=== PATIENT | female | born 1970 | race Caucasian/White ===

== ENCOUNTER → 2017-09-16 13:24 | Outpatient (REF) | payer OTHER, SELFPAY ==
[2017-09-16 19:01] LABS: Basophils % 0.5 % (0.1-2.0); Eosinophils # 0.1 K/mm3 (0.0-0.4); Eosinophils % 2.5 % (0.1-12.0); Hemoglobin 11.7 g/dL (12.2-16.2); Mean Corpuscular HGB Conc 31.7 g/dL (31.8-35.4); Mean Corpuscular Hemoglobin 28.7 pg (27.0-31.2); Mean Corpuscular Volume 90.6 fl (81-99); Mean Platelet Volume 9.3 fl (7.4-10.4); Monocytes # 0.3 K/mm3 (0.1-1.0); Monocytes % 5.7 % (1.7-9.3); Neutrophils # 2.8 K/mm3 (1.8-7.8); Neutrophils % 53.4 % (37.0-80.0); Platelet Count 187 K/mm3 (142-424); Red Blood Count 4.09 M/mm3 (4.20-5.40); Red Cell Distribution Width 14.7 % (11.5-17.5); White Blood Count 5.3 K/mm3 (4.8-10.8)
[2017-09-16 19:32] LABS: Alanine Aminotransferase 14 U/L (12-78); Albumin/Globulin Ratio 1.3 (1.1-1.8); Alkaline Phosphatase 50 U/L (46-116); Anion Gap 16.3 mEq/L (5-15); Aspartate Amino Transferase 13 U/L (15-37); Bilirubin,Total 0.3 mg/dL (0.2-1.0); Blood Urea Nitrogen 10 mg/dL (7-18); Calcium 8.9 mg/dL (8.5-10.1); Carbon Dioxide 23 mmol/L (21.0-32.0); Chloride 104 mmol/L (98-107); Chol/HDL Ratio 3.8 (1-3.5); Cholesterol 199 mg/dL (140-200); Creatinine,Serum 0.83 mg/dL (0.55-1.02); Estimated Glomerular Filt Rate 74 ml/min (>60); GFR (African American) 90 ML/MIN (>60); Globulin 3.1 gm/dl (1.3-3.2); Glucose 91 mg/dL (74-106); HDL Cholesterol 52 mg/dL (29-89); LDL Cholesterol 139 mg/dL (0-130); Potassium 4.3 mmoL/L (3.5-5.1); Sodium 139 mmol/L (136-145); T4 (Thyroxine) 6.1 ug/dl (4.7-13.3); Thyroid Stimulating Hormone 0.96 uIU/ml (0.358-3.740); Total Protein,Serum 7.1 gm/dL (6.4-8.2); Triglycerides 42 mg/dL (30-200); VLDL Cholesterol 8 mg/dL (0-40)
[2017-09-18 09:20] LABS: Hep A Ab, IgM Negative (Negative); Hepatitis B Core Antibody IgM Negative (Negative); Hepatitis B Surface Antigen Negative (Negative)
[2017-09-19 10:41] LABS: Hepatitis C Antibody <0.1 s/co ratio (0.0-0.9); Vitamin B12 289 pg/mL (232-1245); Vitamin D 25 Hydroxy 31.1 ng/mL (30.0-100.0)
== END ==
LOC: LAB 13:24
PROVIDERS: Visit Provider Physician Assistant
DX: R53.83 Other fatigue (principal); Z79.899 Other long term (current) drug therapy; E55.9 Vitamin D deficiency, unspecified; R10.11 Right upper quadrant pain; F32.9 Major depressive disorder, single episode, unspecified
CPT/HCPCS: 80053; 80061; 80074; 82607; 82652; 84436; 84443; 85025

== ENCOUNTER → 2019-04-12 17:21 | Outpatient (CLI) | payer OTHER, SELFPAY ==
[2019-04-12 17:49] LABS: Basophils % 0.5 % (0.1-2.0); Eosinophils # 0.2 K/mm3 (0.0-0.4); Eosinophils % 3.7 % (0.1-12.0); Hematocrit 39.2 % (37.0-47.0); Hemoglobin 12.4 g/dL (12.2-16.2); Lymphocytes # 2.7 K/mm3 (0.7-4.5); Lymphocytes % 46.1 % (10-50); Mean Corpuscular HGB Conc 31.6 g/dL (31.8-35.4); Mean Corpuscular Hemoglobin 30.2 pg (27.0-31.2); Mean Corpuscular Volume 95.7 fl (81-99); Mean Platelet Volume 8.8 fl (7.4-10.4); Monocytes # 0.3 K/mm3 (0.1-1.0); Monocytes % 5.2 % (1.7-9.3); Neutrophils # 2.6 K/mm3 (1.8-7.8); Neutrophils % 44.5 % (37.0-80.0); Platelet Count 187 K/mm3 (142-424); Red Cell Distribution Width 13.4 % (11.5-17.5); White Blood Count 5.9 K/mm3 (4.8-10.8)
[2019-04-12 18:40] LABS: Alanine Aminotransferase 16 U/L (12-78); Albumin Level 3.7 gm/dL (3.4-5.0); Albumin/Globulin Ratio 1.1 (1.1-1.8); Alkaline Phosphatase 63 U/L (46-116); Aspartate Amino Transferase 18 U/L (15-37); Bilirubin,Total 0.3 mg/dL (0.2-1.0); Blood Urea Nitrogen 9 mg/dL (7-18); Calcium 8.6 mg/dL (8.5-10.1); Carbon Dioxide 27 mmol/L (21.0-32.0); Chloride 102 mmol/L (98-107); Chol/HDL Ratio 3.7 (1-3.5); Cholesterol 236 mg/dL (140-200); Creatinine,Serum 0.82 mg/dL (0.55-1.02); Estimated Glomerular Filt Rate 75 ml/min (>60); GFR (African American) 90 ML/MIN (>60); Globulin 3.4 gm/dl (1.3-3.2); Glucose 87 mg/dL (74-106); HDL Cholesterol 64 mg/dL (29-89); LDL Cholesterol 155 mg/dL (0-130); Sodium 136 mmol/L (136-145); T4 (Thyroxine) 5.2 ug/dl (4.7-13.3); Thyroid Stimulating Hormone 1.28 uIU/ml (0.358-3.740); Total Protein,Serum 7.1 gm/dL (6.4-8.2); Triglycerides 84 mg/dL (30-200); VLDL Cholesterol 17 mg/dL (0-40)
[2019-04-14 12:20] LABS: FSH 107.4 mIU/mL (.); LH 44.4 mIU/mL (.); Vitamin D 25 Hydroxy 22.9 ng/mL (30.0-100.0)
[2019-04-17 05:13] LABS: Estrogen 29 pg/mL (.)
== END ==
PROVIDERS: Visit Provider Physician Assistant
DX: R53.83 Other fatigue (principal); E55.9 Vitamin D deficiency, unspecified
CPT/HCPCS: 80053; 80061; 82652; 82672; 83001; 83002; 84436; 84443; 85025

== ENCOUNTER → 2019-10-26 17:25 | Outpatient (CLI) | payer OTHER, SELFPAY ==
[2019-10-26 18:15] LABS: Basophils # 0.1 K/mm3 (0-0.2); Basophils % 1.1 % (0.1-2.0); Eosinophils # 0.3 K/mm3 (0.0-0.4); Lymphocytes % 40.7 % (10-50); Mean Corpuscular HGB Conc 33.2 g/dL (31.8-35.4); Mean Corpuscular Hemoglobin 31.1 pg (27.0-31.2); Mean Corpuscular Volume 93.6 fl (81-99); Mean Platelet Volume 9.4 fl (7.4-10.4); Monocytes # 0.4 K/mm3 (0.1-1.0); Neutrophils # 3.6 K/mm3 (1.8-7.8); Neutrophils % 49.1 % (37.0-80.0); Platelet Count 164 K/mm3 (142-424); Red Blood Count 4.17 M/mm3 (4.20-5.40); Red Cell Distribution Width 13.8 % (11.5-17.5); White Blood Count 7.3 K/mm3 (4.8-10.8)
[2019-10-26 18:48] LABS: Chloride 105 mmol/L (98-107); Potassium 4.3 mmoL/L (3.5-5.1); Sodium 138 mmol/L (136-145)
[2019-10-26 18:50] LABS: Alanine Aminotransferase 10 U/L (12-78); Anion Gap 10.3 mEq/L (5-15); Aspartate Amino Transferase 22 U/L (14-36); Blood Urea Nitrogen 9 mg/dl (7-17); Carbon Dioxide 27 mmol/L (22.0-30.0); Estimated Glomerular Filt Rate 77 ml/min (>60); GFR (African American) 93 ML/MIN (>60)
[2019-10-26 18:51] LABS: Albumin Level 4.3 g/dl (3.5-5.0); Albumin/Globulin Ratio 1.5 (1.1-1.8); Alkaline Phosphatase 68 U/L (38-126); Bilirubin,Total 0.6 mg/dl (0.2-1.3); Calcium 9.4 mg/dl (8.4-10.2); Chol/HDL Ratio 2.7 (1-3.5); Cholesterol 150 mg/dl (140-200); Globulin 2.9 g/dL (1.3-3.2); Glucose 93 mg/dl (74-100); HDL Cholesterol 56 mg/dl (40-60); Total Protein,Serum 7.2 g/dl (6.3-8.2); Triglycerides 77 mg/dl (30-150); VLDL Cholesterol 15 mg/dL (0-40)
[2019-10-26 19:02] LABS: Direct LDL Cholesterol 103.35 mg/dL (100-129)
[2019-10-26 19:08] LABS: T4 (Thyroxine) 5.8 ug/dl (5.53-11.0)
[2019-10-26 19:22] LABS: Thyroid Stimulating Hormone 1.24 uIU/mL (0.465-4.68)
[2019-10-26 21:58] LABS: Hemoglobin A1C 5.4 % (4.0-6.0)
== END ==
PROVIDERS: Visit Provider Physician Assistant
DX: R53.83 Other fatigue (principal); R73.09 Other abnormal glucose
CPT/HCPCS: 80053; 80061; 83036; 84436; 84443; 85025

== ENCOUNTER → 2020-12-20 17:16 | Outpatient (CLI) | payer OTHER, SELFPAY ==
[2020-12-20 18:31] LABS: Basophils % 0.4 % (0.1-2.0); Eosinophils # 0.3 K/mm3 (0.0-0.4); Eosinophils % 3.5 % (0.1-12.0); Hematocrit 39.3 % (37.0-47.0); Lymphocytes % 42.2 % (10-50); Mean Corpuscular HGB Conc 33.1 g/dL (31.8-35.4); Mean Corpuscular Volume 93.7 fl (81-99); Mean Platelet Volume 8.8 fl (7.4-10.4); Monocytes # 0.4 K/mm3 (0.1-1.0); Monocytes % 5.2 % (1.7-9.3); Neutrophils # 3.4 K/mm3 (1.8-7.8); Neutrophils % 48.6 % (37.0-80.0); Platelet Count 174 K/mm3 (142-424); Red Blood Count 4.19 M/mm3 (4.20-5.40); Red Cell Distribution Width 13.1 % (11.5-17.5); White Blood Count 7.1 K/mm3 (4.8-10.8)
[2020-12-20 18:44] LABS: Alanine Aminotransferase 11 U/L (12-78); Albumin Level 4.2 g/dl (3.5-5.0); Albumin/Globulin Ratio 1.6 (1.1-1.8); Alkaline Phosphatase 58 U/L (38-126); Anion Gap 11.3 mEq/L (5-15); Aspartate Amino Transferase 21 U/L (14-36); Bilirubin,Total 0.6 mg/dl (0.2-1.3); Blood Urea Nitrogen 9 mg/dl (7-17); Calcium 8.9 mg/dl (8.4-10.2); Carbon Dioxide 27 mmol/L (22.0-30.0); Chloride 105 mmol/L (98-107); Chol/HDL Ratio 2.8 (1-3.5); Cholesterol 178 mg/dl (140-200); Estimated Glomerular Filt Rate 76 ml/min (>60); GFR (African American) 92 ML/MIN (>60); Globulin 2.6 g/dL (1.3-3.2); Glucose 86 mg/dl (74-100); HDL Cholesterol 63 mg/dl (40-60); Potassium 4.3 mmoL/L (3.5-5.1); Sodium 139 mmol/L (136-145); Total Protein,Serum 6.8 g/dl (6.3-8.2); Triglycerides 74 mg/dl (30-150); VLDL Cholesterol 15 mg/dL (0-40)
[2020-12-20 18:47] LABS: 25-OH Vitamin D, Total 43.5 ng/mL (30-100)
[2020-12-20 18:54] LABS: Direct LDL Cholesterol 94.85 mg/dL (100-129)
[2020-12-20 19:14] LABS: Thyroid Stimulating Hormone 1.11 uIU/mL (0.465-4.68)
[2020-12-20 19:31] LABS: Free T4 (Free Thyroxine) 0.76 ng/dl (0.78-2.19)
== END ==
PROVIDERS: Visit Provider Physician Assistant
DX: R53.83 Other fatigue (principal); E55.9 Vitamin D deficiency, unspecified; K21.9 Gastro-esophageal reflux disease without esophagitis
CPT/HCPCS: 80053; 80061; 82306; 84439; 84443; 85025

== ENCOUNTER → 2021-07-11 16:00 | Outpatient (CLI) | payer OTHER, SELFPAY ==
[2021-07-11 20:37] LABS: Basophils # 0.1 K/mm3 (0-0.2); Basophils % 0.6 % (0.1-2.0); Eosinophils # 0.3 K/mm3 (0.0-0.4); Eosinophils % 4.7 % (0.1-12.0); Hematocrit 44.3 % (37.0-47.0); Hemoglobin 13.7 g/dL (12.2-16.2); Lymphocytes # 2.8 K/mm3 (0.7-4.5); Lymphocytes % 37.4 % (10-50); Mean Corpuscular Hemoglobin 31.1 pg (27.0-31.2); Mean Corpuscular Volume 100.6 fl (81-99); Mean Platelet Volume 10.1 fl (7.4-10.4); Monocytes # 0.4 K/mm3 (0.1-1.0); Neutrophils # 3.8 K/mm3 (1.8-7.8); Neutrophils % 51.3 % (37.0-80.0); Platelet Count 196 K/mm3 (142-424); Red Blood Count 4.41 M/mm3 (4.20-5.40); White Blood Count 7.3 K/mm3 (4.8-10.8)
[2021-07-11 21:06] LABS: Alanine Aminotransferase 11 U/L (12-78); Albumin Level 4.7 g/dl (3.5-5.0); Albumin/Globulin Ratio 1.9 (1.1-1.8); Alkaline Phosphatase 54 U/L (38-126); Anion Gap 13.7 mEq/L (5-15); Aspartate Amino Transferase 23 U/L (14-36); Bilirubin,Total 0.4 mg/dl (0.2-1.3); Blood Urea Nitrogen 14 mg/dl (7-17); Calcium 9.3 mg/dl (8.4-10.2); Carbon Dioxide 26 mmol/L (22.0-30.0); Chloride 103 mmol/L (98-107); Chol/HDL Ratio 2.8 (1-3.5); Cholesterol 177 mg/dl (140-200); Estimated Glomerular Filt Rate 76 ml/min (>60); GFR (African American) 92 ML/MIN (>60); Globulin 2.5 g/dL (1.3-3.2); Glucose 71 mg/dl (74-100); HDL Cholesterol 63 mg/dl (40-60); Potassium 4.7 mmoL/L (3.5-5.1); Sodium 138 mmol/L (136-145); Total Protein,Serum 7.2 g/dl (6.3-8.2); Triglycerides 94 mg/dl (30-150); VLDL Cholesterol 19 mg/dL (0-40)
[2021-07-11 21:27] LABS: Direct LDL Cholesterol 99.99 mg/dL (100-129)
[2021-07-11 21:35] LABS: Thyroid Stimulating Hormone 1.23 uIU/mL (0.465-4.68)
== END ==
PROVIDERS: Visit Provider Physician Assistant
DX: Z00.00 Encounter for general adult medical examination without abnormal findings (principal)
CPT/HCPCS: 80053; 80061; 82306; 84443; 85025

== ENCOUNTER 2024-03-29 15:09 | Emergency (ER) | payer OTHER, SELFPAY ==
[2024-03-29 15:09] VITALS: BP 132/84; PULSE 98; RESP 18; TEMP 36.6; O2SAT 100; BMI 20.3
--- NOTE | 2024-03-29 15:10 | ECG_ITS ---
APPROVED REPORT Exam: Resting ECG HR:83 bpm ECG Measurements Heart Rate 83 AXES IA 144 P 71 QRSd 80 QRS 93 QT 345 T 72 QTc 385 Conclusion SINUS RHYTHM BORDERLINE RIGHT AXIS DEVIATION [QRS AXIS > 90] BORDERLINE ECG UNCONFIRMED REPORT Electronically signed by : Obey Killian, 03/29/2024 22:58:04
--- NOTE | 2024-03-29 15:16 | XR_ITS ---
PROCEDURE INFORMATION: Exam: XR Chest Exam date and time: 03/29/2024 3:19 PM Age: 53 years old Clinical indication: Dyspnea TECHNIQUE: Imaging protocol: Radiologic exam of the chest. Views: 1 view. COMPARISON: No relevant prior studies available. FINDINGS: Lungs: No evidence of acute pulmonary disease or infiltrates Pleural spaces: No large effusion or pneumothorax. Heart/Mediastinum: No evidence of mediastinal widening or cardiac silhouette enlargement; the mediastinum and heart appear within normal limits for contour and size. Bones/joints: No evidence of acute osseous abnormalities within the visualized portions of the thoracic spine and ribs. Osseous structures appear appropriate for patient age. IMPRESSION: No dense parenchymal consolidation, pleural effusion, or pneumothorax.
--- NOTE | 2024-03-29 15:18 | [facility].EDCP ---
Discharge Plan Disposition Patient Disposition: Home, Self-Care Prescriptions Prescriptions: New azithromycin 250 mg tablet See Rx Instructions .ROUTE .COMPLEX Qty: 6 0RF Rx Instructions: For 250 mg dose pack: take 500 mg today (day 1), then 250 mg for 4 days (days 2-5) benzonatate 100 mg capsule 100 mg PO TID PRN (Reason: cough) 5 Days Qty: 20 0RF albuterol sulfate 90 mcg/actuation HFA aerosol inhaler 4 inh inhalation Q4H PRN (Reason: shortness of breath or wheezing) Qty: 8.5 0RF Rx Instructions: 4 puffs every 4 hours for 48 hours then as needed for shortness of breath or wheezing following No Action naproxen 500 mg tablet 500 mg PO Q12H Qty: 60 0RF Rx Instructions: administer with food or milk cyclobenzaprine 10 mg tablet 10 mg PO TID PRN (Reason: muscle spasm) Qty: 90 0RF amoxicillin-pot clavulanate 875-125 mg tablet 1 tab PO BID 10 Days Qty: 20 0RF prednisone 20 mg tablet 20 mg PO BID Qty: 10 0RF Rx Instructions: administer with food or milk albuterol sulfate [Ventolin HFA] 90 mcg/actuation HFA aerosol inhaler See Rx Instructions .ROUTE .COMPLEX Qty: 18 6RF Dose Instruction: TAKE 2 PUFFS BY MOUTH EVERY 4 TO 6 HOURS NEEDEDSW RR Rx Instructions: TAKE 2 PUFFS BY MOUTH EVERY 4 TO 6 HOURS NEEDEDSW RR atorvastatin 10 mg tablet See Rx Instructions .ROUTE .COMPLEX Qty: 90 2RF Dose Instruction: TAKE ONE TABLET BY MOUTH AT BEDTIME FOR CHOLESTEROL Rx Instructions: TAKE ONE TABLET BY MOUTH AT BEDTIME FOR CHOLESTEROL estradiol 1 mg tablet See Rx Instructions .ROUTE .COMPLEX Qty: 30 9RF Dose Instruction: TAKE 1 TABLET BY MOUTH ONCE DAILY Rx Instructions: TAKE 1 TABLET BY MOUTH ONCE DAILY omeprazole 40 mg capsule,delayed release(DR/EC) See Rx Instructions .ROUTE .COMPLEX Qty: 90 0RF Dose Instruction: TAKE 1 CAPSULE BY MOUTH ONCE DAILY Rx Instructions: TAKE 1 CAPSULE BY MOUTH ONCE DAILY medroxyprogesterone 2.5 mg tablet See Rx Instructions .ROUTE .COMPLEX Qty: 30 9RF Dose Instruction: TAKE 1 TABLET BY MOUTH ONCE DAILY Rx Instructions: TAKE 1 TABLET BY MOUTH ONCE DAILY ergocalciferol (vitamin D2) [Vitamin D2] 1,250 mcg (50,000 unit) capsule See Rx Instructions .ROUTE .COMPLEX Qty: 14 0RF Dose Instruction: TAKE 1 CAPSULE BY MOUTH ONCE WEEKLY DIRECTED PATIENT NEEDS AN APPOINTMENT BEFORE ANYMORE REFILLS Rx Instructions: TAKE 1 CAPSULE BY MOUTH ONCE WEEKLY DIRECTED PATIENT NEEDS AN APPOINTMENT BEFORE ANYMORE REFILLS quetiapine 50 mg tablet See Rx Instructions .ROUTE .COMPLEX Qty: 90 2RF Dose Instruction: TAKE 1 TABLET BY MOUTH AT BEDTIME WITH 200MG TABLET FOR TOTAL OF 250MG Rx Instructions: TAKE 1 TABLET BY MOUTH AT BEDTIME WITH 200MG TABLET FOR TOTAL OF 250MG hyoscyamine sulfate 0.125 mg tablet, sublingual See Rx Instructions .ROUTE .COMPLEX Qty: 120 0RF Dose Instruction: TAKE 1 TABLET BY MOUTH FOUR TIMES DAILY NEEDED FOR ABDOMINAL PAIN Rx Instructions: TAKE 1 TABLET BY MOUTH FOUR TIMES DAILY NEEDED FOR ABDOMINAL PAIN quetiapine 200 mg tablet See Rx Instructions .ROUTE .COMPLEX Qty: 90 0RF Dose Instruction: TAKE 1 TABLET BY MOUTH AT BEDTIME Rx Instructions: TAKE 1 TABLET BY MOUTH AT BEDTIME duloxetine 60 mg capsule,delayed release(DR/EC) See Rx Instructions .ROUTE .COMPLEX Qty: 90 0RF Dose Instruction: TAKE 1 CAPSULE BY MOUTH DAILY FOR DEPRESSION Rx Instructions: TAKE 1 CAPSULE BY MOUTH DAILY FOR DEPRESSION clonidine HCl 0.2 mg tablet See Rx Instructions .ROUTE .COMPLEX Qty: 90 1RF Dose Instruction: TAKE 1 TABLET BY MOUTH AT BEDTIME Rx Instructions: TAKE 1 TABLET BY MOUTH AT BEDTIME Referrals Follow up/Referrals: Provider,MD Colt [Primary Care Provider] - See instructions Cody Thapa MD [Physician] - See instructions Activity Restrictions/Add. Instructions Additional Instructions/Restrictions: As discussed I strongly encourage that you stop smoking. Given the fact that you likely have underlying COPD your bronchitis may be bacterial in nature but is still statistically most likely to be viral. Please get your antibiotic and your symptomatic medications filled and follow-up with our streaming media specialist as referred. Return with any significant worsening of her symptoms. There is no evidence of any cardiopulmonary emergency today such as heart attack etc. Clinical Impressions Clinical Impression: Chest wall pain, Bronchitis, Encounter for smoking cessation counseling Print Language Print Language: Wolof Discharge ED Provider: Beckie Killian HPI General Chief Complaint: Chest Pain Stated Complaint: Chest Pain Time Seen by Provider: 03/29/24 15:11 History of Present Illness HPI narrative: Patient is a 53-year-old female with a [id number] history of smoking presenting today with increasing cough sputum production wheezing. She states that her cough began 3 days ago and she subsequently developed chest pain today that was only associated with coughing. No significant worsening with movement exertion no shortness of breath nausea or diaphoresis. She denies any fevers or chills. She denies a history or diagnosis of COPD or any other comorbidities. Related Data Previous Rx's ?Medication ?Instructions ?Recorded albuterol sulfate 90 mcg/actuation See Rx Instructions .Route 04/02/22 aerosol inhaler (Ventolin HFA) .COMPLEX ##18 cyclobenzaprine 10 mg tablet 10 mg PO TID PRN muscle spasm #90 05/28/22 tabs naproxen 500 mg tablet 500 mg PO Q12H #60 tabs 05/28/22 amoxicillin 875 mg-potassium 1 tab PO BID 10 days #20 tabs 09/17/22 clavulanate 125 mg tablet prednisone 20 mg tablet 20 mg PO BID #10 tabs 09/17/22 atorvastatin 10 mg tablet See Rx Instructions .Route 04/28/23 .COMPLEX #90 ea estradiol 1 mg tablet See Rx Instructions .Route 04/28/23 .COMPLEX #30 tabs omeprazole 40 mg capsule,delayed See Rx Instructions .Route 04/30/23 release .COMPLEX #90 caps medroxyprogesterone 2.5 mg tablet See Rx Instructions .Route 05/29/23 .COMPLEX #30 tabs ergocalciferol (vitamin D2) 1,250 See Rx Instructions .Route 07/02/23 mcg (50,000 unit) capsule (Vitamin .COMPLEX #14 caps D2) quetiapine 50 mg tablet See Rx Instructions .Route 07/02/23 .COMPLEX #90 tabs hyoscyamine sulfate 0.125 mg See Rx Instructions .Route 07/21/23 sublingual tablet .COMPLEX #120 ea quetiapine 200 mg tablet See Rx Instructions .Route 01/12/24 .COMPLEX #90 tabs clonidine HCl 0.2 mg tablet See Rx Instructions .Route 03/12/24 .COMPLEX #90 tabs duloxetine 60 mg capsule,delayed See Rx Instructions .Route 03/12/24 release .COMPLEX #90 caps albuterol sulfate 90 mcg/actuation 4 inh inhalation Q4H PRN shortness 03/29/24 aerosol inhaler of breath or wheezing #8.5 grams azithromycin 250 mg tablet See Rx Instructions PO .COMPLEX #6 03/29/24 tabs benzonatate 100 mg capsule 100 mg PO TID PRN cough 5 days #20 03/29/24 caps Allergies Allergy/AdvReac Type Severity Reaction Status Date / Time codeine [CODEINE] Allergy Unknown Verified 09/17/22 15:24 [facility] Disclaimer: The information contained in this section may have been updated after the patient was seen, as this information can be updated by other users. Medical History Abnormal Pap smear of cervix Chronic pain of both ears Depression GERD (gastroesophageal reflux disease) Insomnia Irregular intermenstrual bleeding RUQ pain Vitamin D deficiency Surgical History H/O tympanostomy History of tubal ligation Social History Smoking Status: Current every day smoker tobacco type: cigarettes packs per day: 1 alcohol intake: never substance use type: denies use current occupational status: employed Travel in the last 8 weeks: None household members: family housing: house Other Medical History Have you received the Flu Vaccine for this season: No Have you received the Pneumonia Vaccine: No ROS Obtained: Yes All systems reviewed & no additional complaints except as documented Physical Exam General General appearance: alert and in no apparent distress Respiratory Respiratory exam: Present normal lung sounds bilaterally; Absent respiratory distress Cardiovascular Cardiovascular exam: Present regular rate and normal rhythm Abdominal Exam Abdominal exam: Present soft and distention Neurological Exam Neurological exam: Present alert and oriented X3 HEART Score HEART Score HEART Score assessment performed?: Yes History (anamnesis): Slightly suspicious ECG: Normal Age: 45-65 years Risk factors: 1-2 risk factors Troponin: </= normal limit HEART Score: 2 Critical Care Critical Care Time Critical Care Time: No Medical Decision Making Vargas Inquiry Pt receiving controlled substance: No Vital Signs Vital Signs: 03/29/24 15:09 Temperature 97.8 F Temperature Source Oral Pulse Rate [Right Brachial] 98 H Respiratory Rate 18 Blood Pressure [Right Arm] 132/84 Blood Pressure Mean [Right Arm] 100 Blood Pressure Source [Right Arm] Automatic Cuff Blood Pressure Position [Right Arm] Supine 02 Sat by Pulse Oximetry 100 Oxygen Delivery Method Room Air Lab Data Lab results reviewed: Yes I reviewed the patient's lab results. Labs: Lab Results 03/29/24 15:12: WBC 5.2, RBC 4.26, Hgb 14.0, Hct 41.3, MCV 97.1, MCH 32.8 H, MCHC 33.8, RDW 13.0, Plt Count 152, MPV 8.4, Neut % (Auto) 41.5, Lymph % (Auto) 47.5, [place] % (Auto) 7.3, Eos % (Auto) 2.1, Baso % (Auto) 1.6, Neut # (Auto) 2.1, Lymph # (Auto) 2.5, [place]he # (Auto) 0.4, Eos # (Auto) 0.1, Baso # (Auto) 0.1, Sodium 137, Potassium 3.9, Chloride 103, Carbon Dioxide 26, BUN 11, Creatinine 0.80, Glucose 131 H, Calcium 9.0, Total Bilirubin 0.5, AST 28, ALT 17, Alkaline Phosphatase 61, Troponin I < 0.01, Total Protein 7.9, Albumin 4.7 03/29/24 15:12 03/29/24 15:12 Response Orders (Tests/Meds): ED MEDICATIONS Discontinued Medications Generic Name Dose Route Start Last Admin Trade Name Freq PRN Reason Stop Dose Admin Albuterol/Ipratropium 3 ml 03/29/24 15:16 03/29/24 15:44 Ipratropium/Albuterol 3 Ml Neb 03/29/24 15:17 Not Given ONCE ONE Dexamethasone Sodium Phosphate 10 mg 03/29/24 15:16 03/29/24 15:35 Dexamethasone 4mg/Ml 1ml Vial IV 03/29/24 15:17 10 mg ONCE ONE Administration Ketorolac Tromethamine 15 mg 03/29/24 15:16 03/29/24 15:34 Ketorolac 30mg/Ml Vial IV 03/29/24 15:17 15 mg ONCE ONE Administration ORDERS Category Date Time Status CXR --portable [XR chest portable] Stat Exams 03/29/24 15:16 Taken CBC w/Auto Diff [Complete Blood Count Auto Diff] Stat Lab 03/29/24 15:12 Completed CMP [Comprehensive Metabolic Panel] Stat Lab 03/29/24 15:12 Results HIV (1&2) Antibody Rapid Stat Lab 03/29/24 15:12 Received Hep C Ab with Reflex to RNA Stat Lab 03/29/24 15:12 Received Rapid PCR Covid and Flu A/B Stat Lab 03/29/24 15:50 Received Trop I [Troponin I] Stat Lab 03/29/24 15:12 Results Troponin I Q3H Lab 03/29/24 18:30 Ordered Troponin I Q3H Lab 03/29/24 21:30 Ordered ECG Data Tracing #1: Attestation: I reviewed this ECG and interpreted as documented below: ECG Narrative: Ventricular rate 83 normal sinus rhythm no acute ischemic changes noted normal axis no significant conduction abnormalities MDM Narrative Medical Decision Narrative: 53-year-old with increasing cough sputum production wheezing and chest pain which sounds like musculoskeletal discomfort over the last several days with associated with cough. She has no signs or symptoms of coronary syndrome, pulmonary embolism is unlikely, EKG is nonischemic. Most likely the patient has underlying COPD with her extensive smoking history and the symptoms she is presenting with but I will not make a formal diagnosis and we will give her a referral to pulmonology. However we will give her steroids and breathing treatment to Toradol for musculoskeletal chest discomfort. A single troponin will be used to rule out any type of myocardial involvement which would include myocarditis and acute coronary syndrome. Chest x-ray also will be obtained to rule out a lobar pneumonia. Will reassess after this initial workup is complete. Chest x-ray performed I personally interpreted which shows no evidence of acute cardiopulmonary emergency such as lobar pneumonia. Patient refused her DuoNeb. Patient also states that she typically has an ear infection which precedes the symptoms I did evaluate her tympanic membrane's which were not inflamed however she did have a middle ear effusion on the left but no evidence of significant infection. Most likely this is viral bronchitis but with her probable underlying COPD is possible this is bacterial in nature. She states that any prescription that I sent her she will not be able to fill anyway. For multiple reasons I felt as though an antibiotic is indicated and that if she does have the ability to get this filled within the next few days and continues to be symptomatic this may be helpful. Benzonatate and albuterol also prescribed. She has been given a referral to our streaming media specialist if she is able to follow-up. I also strongly encouraged that she stop smoking we had an extensive discussion regarding that. She was very stable on reassessment from a pulmonary standpoint discharged in stable condition. No evidence of acute coronary syndrome myocardial involvement etc. Chemistries otherwise unremarkable. Patient was discharged with return cautions emphasized.
[2024-03-29 15:27] LABS: Chloride 103 mmol/L (98-107)
[2024-03-29 15:28] LABS: Albumin Level 4.7 g/dl (3.5-5.0); Basophils # 0.1 K/mm3 (0-0.2); Basophils % 1.6 % (0.1-2.0); Eosinophils # 0.1 K/mm3 (0.0-0.4); Eosinophils % 2.1 % (0.1-12.0); Hematocrit 41.3 % (37.0-47.0); Lymphocytes # 2.5 K/mm3 (0.7-4.5); Lymphocytes % 47.5 % (10-50); Mean Corpuscular HGB Conc 33.8 g/dL (31.8-35.4); Mean Corpuscular Hemoglobin 32.8 pg (27.0-31.2); Mean Corpuscular Volume 97.1 fl (81-99); Mean Platelet Volume 8.4 fl (7.4-10.4); Monocytes # 0.4 K/mm3 (0.1-1.0); Monocytes % 7.3 % (1.7-9.3); Neutrophils # 2.1 K/mm3 (1.8-7.8); Neutrophils % 41.5 % (37.0-80.0); Platelet Count 152 K/mm3 (142-424); Potassium 3.9 mmoL/L (3.5-5.1); Red Blood Count 4.26 M/mm3 (4.20-5.40); Sodium 137 mmol/L (136-145); White Blood Count 5.2 K/mm3 (4.8-10.8)
[2024-03-29 15:30] LABS: Alanine Aminotransferase 17 U/L (12-78); Anion Gap 11.9 mEq/L (5-15); Aspartate Amino Transferase 28 U/L (14-36); Blood Urea Nitrogen 11 mg/dl (7-17); Carbon Dioxide 26 mmol/L (22.0-30.0); Creatinine Clearance Estimated 81 mL/min (50-200); Estimated Glomerular Filt Rate 75 ml/min (>60); GFR (African American) 91 ML/MIN (>60)
[2024-03-29 15:31] LABS: Albumin/Globulin Ratio 1.5 (1.1-1.8); Alkaline Phosphatase 61 U/L (38-126); Bilirubin,Total 0.5 mg/dl (0.2-1.3); Globulin 3.2 g/dL (1.3-3.2); Glucose 131 mg/dl (74-100); Total Protein,Serum 7.9 g/dl (6.3-8.2)
[2024-03-29] MEDS: KETOROLAC 30MG/ML VIAL 15 MG IV (15:34)
[2024-03-29] MEDS: DEXAMETHASONE 4MG/ML 1ML VIAL 10 MG IV (15:35)
[2024-03-29 15:44] LABS: Troponin I < 0.01 ng/ml (0.00-0.034)
[2024-03-29 15:56] LABS: Coronavirus 19, PCR Not Detected (NotDetected); Influenza A, PCR Not Detected (NotDetected); Influenza B, PCR Not Detected (NotDetected)
[2024-03-29 16:11] VITALS: BP 130/82; PULSE 80; RESP 18; TEMP 36.6; O2SAT 97
[2024-03-29 18:32] LABS: HIV (1&2) Antibody Rapid NONREACTIVE (NONREACTIVE)
[2024-03-30 09:38] LABS: HCV Ab Non Reactive (Non Reactive)
== END 2024-03-29 16:23 | disposition home or self-care (01) ==
PROVIDERS: Emergency Provider Student in an Organized Health Care Education/Training Program
DX: J40 Bronchitis, not specified as acute or chronic (principal); R07.89 Other chest pain; R07.9 Chest pain, unspecified; R05.9 Cough, unspecified; R06.2 Wheezing; F17.210 Nicotine dependence, cigarettes, uncomplicated; Z71.6 Tobacco abuse counseling
CPT/HCPCS: 71045; 80053; 84484; 85025; 86803; 87389; 87636; 93005; 96374; 96375; 99284; J1100; J1885; J7620

== ENCOUNTER 2024-07-14 15:50 | Outpatient (CLI) | payer OTHER, SELFPAY ==
[2024-07-14 19:06] LABS: Basophils % 0.5 % (0.1-2.0); Eosinophils # 0.2 K/mm3 (0.0-0.4); Eosinophils % 2.6 % (0.1-12.0); Hematocrit 37.2 % (37.0-47.0); Hemoglobin 12.5 g/dL (12.2-16.2); Lymphocytes # 3.2 K/mm3 (0.7-4.5); Lymphocytes % 44.1 % (10-50); Mean Corpuscular HGB Conc 33.6 g/dL (31.8-35.4); Mean Corpuscular Hemoglobin 31.2 pg (27.0-31.2); Mean Corpuscular Volume 92.8 fl (81-99); Mean Platelet Volume 10.8 fl (7.4-10.4); Monocytes # 0.5 K/mm3 (0.1-1.0); Monocytes % 6.2 % (1.7-9.3); Neutrophils # 3.4 K/mm3 (1.8-7.8); Neutrophils % 46.3 % (37.0-80.0); Platelet Count 170 K/mm3 (142-424); Red Blood Count 4.01 M/mm3 (4.20-5.40); Red Cell Distribution Width 12.9 % (11.5-17.5); White Blood Count 7.3 K/mm3 (4.8-10.8)
[2024-07-14 19:42] LABS: Hemoglobin A1C 5.4 % (4.0-6.0)
[2024-07-14 19:58] LABS: Alanine Aminotransferase 20 U/L (12-78); Albumin Level 4.7 g/dl (3.5-5.0); Alkaline Phosphatase 68 U/L (38-126); Anion Gap 15.3 mEq/L (5-15); Aspartate Amino Transferase 28 U/L (14-36); Bilirubin,Total 0.4 mg/dl (0.2-1.3); Blood Urea Nitrogen 14 mg/dl (7-17); Calcium 9.2 mg/dl (8.4-10.2); Carbon Dioxide 27 mmol/L (22.0-30.0); Chloride 99 mmol/L (98-107); Cholesterol 184 mg/dl (140-200); Estimated Glomerular Filt Rate 75 ml/min (>60); GFR (African American) 91 ML/MIN (>60); Globulin 2.3 g/dL (1.3-3.2); Glucose 84 mg/dl (74-100); HDL Cholesterol 61 mg/dl (40-60); Potassium 4.3 mmoL/L (3.5-5.1); Sodium 137 mmol/L (136-145); Triglycerides 100 mg/dl (30-150); VLDL Cholesterol 20 mg/dL (0-40)
[2024-07-14 20:10] LABS: Direct LDL Cholesterol 88.02 mg/dL (100-129)
[2024-07-14 20:18] LABS: 25-OH Vitamin D, Total 37.9 ng/mL (30-100)
[2024-07-14 20:19] LABS: T4 (Thyroxine) 5.8 ug/dl (5.53-11.0); Triiodothryronine (T3) Uptake 34 % (23.5-40.5)
[2024-07-14 20:33] LABS: Thyroid Stimulating Hormone 0.93 uIU/mL (0.465-4.68)
== END 2024-07-14 23:59 | disposition home or self-care (01) ==
LOC: LAB.DROPOF 07-15 12:26
PROVIDERS: PCP Family Medicine; Visit Provider Family Medicine
DX: E55.9 Vitamin D deficiency, unspecified (principal); F32.1 Major depressive disorder, single episode, moderate; G47.00 Insomnia, unspecified; Z13.1 Encounter for screening for diabetes mellitus
CPT/HCPCS: 80053; 80061; 82306; 83036; 84436; 84443; 84479; 85025

== ENCOUNTER 2025-02-10 14:56 | Outpatient (CLI) | payer MEDICAID, SELFPAY ==
--- NOTE | 2025-02-10 14:57 | XR_ITS ---
FINAL REPORT CLINICAL HISTORY: right wrist pain FINDINGS: AP, oblique, and lateral views of the right wrist were obtained. There is no prior exam for comparison. There is no acute fracture or dislocation. The joint spaces are preserved. The soft tissues are normal. IMPRESSION: No acute osseous abnormality of the right wrist. Reviewed, Interpreted and Dictated by Eri Medeiros MD Transcribed by Mouna Jason Authenticated and . [facility]
--- NOTE | 2025-02-10 14:57 | XR_ITS ---
FINAL REPORT CLINICAL HISTORY: left wrist pain FINDINGS: AP, oblique, and lateral views of the left wrist were obtained. There is no prior exam for comparison. There is no acute fracture or dislocation. The joint spaces are preserved. The soft tissues are normal. IMPRESSION: No acute osseous abnormality of the left wrist. Reviewed, Interpreted and Dictated by Eri Medeiros MD Transcribed by Mouna Jason Authenticated and [facility]
--- NOTE | 2025-02-10 14:57 | XR_ITS ---
FINAL REPORT CLINICAL HISTORY: right hand pain FINDINGS: AP, lateral and oblique views of the right hand were obtained. There is no prior exam for comparison. There is no acute fracture or dislocation. The joint spaces are preserved. The soft tissues are normal. IMPRESSION: No acute osseous abnormality of the right hand. Reviewed, Interpreted and Dictated by Eri Medeiros MD Transcribed by Mouna Jason Authenticated and [facility]
--- NOTE | 2025-02-10 14:57 | XR_ITS ---
FINAL REPORT CLINICAL HISTORY: left hand pain FINDINGS: AP, oblique, and lateral views of the left hand were obtained. There is no prior exam for comparison. There is no acute fracture of the left hand. The joint spaces are preserved. The soft tissues are normal. IMPRESSION: No acute osseous abnormality of the left hand. Reviewed, Interpreted and Dictated by Eri Medeiros MD Transcribed by Mouna Jason Authenticated and [facility]
== END 2025-02-10 23:59 | disposition home or self-care (01) ==
LOC: RAD 14:57
PROVIDERS: Visit Provider Physician Assistant
DX: M25.531 Pain in right wrist (principal); M25.532 Pain in left wrist; M79.642 Pain in left hand; M79.641 Pain in right hand
CPT/HCPCS: 73110; 73130

== ENCOUNTER 2025-03-10 16:14 | Outpatient (CLI) | payer MEDICAID, SELFPAY ==
[2025-03-10 20:30] LABS: Hematocrit 41.0 % (37.0-47.0); Hemoglobin 13.8 g/dL (12.2-16.2); Immature Granulocytes % 0.3 %; Mean Corpuscular HGB Conc 33.7 g/dL (31.8-35.4); Mean Corpuscular Hemoglobin 31.7 pg (27.0-31.2); Mean Corpuscular Volume 94.0 fl (81-99); Nucleated Red Blood Cells % 0 %; Platelet Count 177 K/mm3 (142-424); Red Blood Count 4.36 M/mm3 (4.20-5.40); Red Cell Distribution Width-SD 43.5 fL; White Blood Count 6.3 K/mm3 (4.8-10.8)
[2025-03-10 21:35] LABS: Alanine Aminotransferase 15 U/L (12-78); Albumin Level 4.4 g/dl (3.5-5.0); Albumin/Globulin Ratio 1.7 (1.1-1.8); Alkaline Phosphatase 74 U/L (38-126); Anion Gap 14.7 mEq/L (5-15); Aspartate Amino Transferase 22 U/L (14-36); Bilirubin,Total 0.6 mg/dl (0.2-1.3); Blood Urea Nitrogen 11 mg/dl (7-17); Calcium 9.2 mg/dl (8.4-10.2); Carbon Dioxide 28 mmol/L (22.0-30.0); Chloride 99 mmol/L (98-107); Creatinine,Serum 0.80 mg/dl (0.52-1.04); Estimated Glomerular Filt Rate 75 ml/min (>60); GFR (African American) 91 ML/MIN (>60); Globulin 2.6 g/dL (1.3-3.2); Glucose 57 mg/dl (74-100); Potassium 4.7 mmoL/L (3.5-5.1); Sodium 137 mmol/L (136-145); Total Protein,Serum 7.0 g/dl (6.3-8.2)
[2025-03-10 21:49] LABS: Free Thyroxine Index 2.5 ug/dL (5.93-13.13); T4 (Thyroxine) 7.2 ug/dl (5.53-11.0); Triiodothryronine (T3) Uptake 35 % (23.5-40.5)
[2025-03-10 22:02] LABS: Thyroid Stimulating Hormone 1.18 uIU/mL (0.465-4.68)
== END 2025-03-10 23:59 ==
LOC: LAB.DROPOF 03-11 02:10
PROVIDERS: PCP Family Medicine; Visit Provider Family Medicine
DX: I10 Essential (primary) hypertension (principal)
CPT/HCPCS: 80053; 84436; 84443; 84479; 85025